=== PATIENT | female | born 1965 | race African-American/Black ===

== ENCOUNTER 2018-08-29 16:23 | Emergency (ER) | payer MEDICAID ==
[2018-08-29 18:22] LABS: APPEARANCE,URINE CLEAR; BILIRUBIN,URINE NEGATIVE (NEGATIVE); COLOR,URINE YELLOW; GLUCOSE, URINE NEGATIVE (NEGATIVE); KETONES,URINE NEGATIVE (NEGATIVE); LEUKOCYTE ESTERASE,URINE NEGATIVE (NEGATIVE); NITRITE,URINE NEGATIVE (NEGATIVE); PROTEIN,URINE 30 mg/dL (NEGATIVE); UROBILINOGEN,URINE NEGATIVE mg/dL (<2.0)
--- NOTE | 2018-08-29 18:46 | ER Document Report ---
ED General - General Chief Complaint: Near Syncope Stated Complaint: SYNCOPE Time Seen by Provider: 08/29/18 18:33 Primary Care Provider: PRADEEP MERRITT MD [Primary Care Provider] - Follow up as needed Mode of Arrival: Ambulatory Information source: Patient Notes: This is a pleasant 52-year-old woman with a history of degenerative joint disease of the knees, vision impairment who lives alone and went outside to take out the garbage. She states she sat down on the ground because her knees hurt. She states when she was on the ground she could not get up because of generalized weakness. She was brought in by her son. She states she was out in the heat for about an hour. She states she did feel weak but was in the house and felt better. Currently, she is without complaints. TRAVEL OUTSIDE OF THE [place] IN LAST 30 DAYS: No - HPI Onset: Just prior to arrival Onset/Duration: Gradual Quality of pain: No pain Severity: None Pain Level: Denies Associated symptoms: denies: Chest pain, Fever Exacerbated by: Denies Relieved by: Denies Similar symptoms previously: Yes Recently seen / treated by doctor: No - Related Data Allergies/Adverse Reactions: Penicillins Allergy (Verified 08/29/18 16:26) Past Medical History - General Information source: Patient - Social History Smoking Status: Never Smoker Cigarette use (# per day): No Chew tobacco use (# tins/day): No Frequency of alcohol use: None Drug Abuse: None Lives with: Family Family History: None Patient has suicidal ideation: No Patient has homicidal ideation: No - Past Medical History Cardiac Medical History: Reports: Hx Hypertension Pulmonary Medical History: Reports: None EENT Medical History: Reports: Eyes - Vision impaired Neurological Medical History: Reports: None Endocrine Medical History: Reports: None Renal/ Medical History: Denies: Hx Peritoneal Dialysis GI Medical History: Reports: None Surgical Hx: Negative Review of Systems - Review of Systems Constitutional: denies: Chills, Fever EENT: No symptoms reported Cardiovascular: See HPI Respiratory: No symptoms reported Gastrointestinal: No symptoms reported Genitourinary: No symptoms reported Female Genitourinary: No symptoms reported Musculoskeletal: See HPI Skin: No symptoms reported Hematologic/Lymphatic: No symptoms reported Neurological/Psychological: See HPI, Weakness - Generalized Physical Exam - Vital signs Vitals: Temp Pulse Resp BP Pulse Ox 98.6 F 113 H 18 140/85 H 94 08/29/18 16:26 08/29/18 16:26 08/29/18 16:26 08/29/18 16:26 08/29/18 16:26 Notes: Physical exam: GENERAL: She is alert and oriented x3, no acute distress HEAD: Atraumatic, normocephalic. EYE: Sclera anicteric, conjunctiva are normal. ENT: TMs normal, nares patent, oropharynx clear without exudates. Moist mucous membranes. NECK: Normal range of motion, supple without obvious mass or JVD. LUNGS: Breath sounds clear to auscultation bilaterally and equal. No wheezes rales or rhonchi. HEART: Regular rate and rhythm without murmurs, rubs or gallops. ABDOMEN: Soft, normoactive bowel sounds. No tenderness to palpation. No guarding, no rebound. No masses appreciated. EXTREMITIES: Normal range of motion, no pitting or edema. No clubbing or cyanosis. NEUROLOGICAL: Cranial nerves II through XII grossly intact. Normal speech, moving all extremities. PSYCH: Normal mood, normal affect. SKIN: Warm, Dry, normal turgor, no rashes or lesions noted. Course - Re-evaluation Re-evalutation: 08/29/18 22:03 Note: Patient states she feels good right now. She is requesting not to have blood work or IV fluids. She is able to tolerate p.o. and she is without complaints at this time. I will let her go home. - Vital Signs Vital signs: Temp Pulse Resp BP Pulse Ox 98.6 F 113 H 28 H 167/101 H 98 08/29/18 16:26 08/29/18 16:26 08/29/18 19:28 08/29/18 19:28 08/29/18 19:28 - Laboratory Laboratory results interpreted by me: 08/29/18 17:57 Urine Protein 30 H Urine Blood SMALL H Discharge - Discharge Clinical Impression: Generalized weakness Condition: Stable Disposition: HOME, SELF-CARE Additional Instructions: As we discussed, your blood pressure was mildly elevated. Want you to continue current medicines and follow-up with Dr. Merritt. Drink plenty of fluids particularly when out in the heat. Return to the emergency room for any chest pain, shortness of breath or any concerns of worsening weakness per Referrals: PRADEEP MERRITT MD [Primary Care Provider] - Follow up as needed
[2018-08-29 19:48] VITALS: BP 167/101
--- NOTE | 2018-08-30 00:02 | EKG REPORT ---
SEVERITY:- ABNORMAL ECG - SINUS RHYTHM PROBABLE INFERIOR INFARCT, AGE INDETERMINATE : Confirmed by: Chelsey Lin 30-Aug-2018 00:01:34
== END 2018-08-29 19:48 | disposition home or self-care (01) ==
LOC: ER 16:23
DX: R53.1 Weakness (principal); R55 Syncope and collapse; I10 Essential (primary) hypertension; Z88.0 Allergy status to penicillin
CPT/HCPCS: 81001; 93005; 93010; 99284

== ENCOUNTER → 2018-10-14 | Outpatient (CLI) | payer MEDICAID ==
--- NOTE | 2018-10-14 14:56 | RADIOLOGY REPORT (SQ) ---
EXAM DESCRIPTION: MRI LT LOWER JOINT WITHOUT COMPLETED DATE/TIME: 10/14/2018 12:28 pm REASON FOR STUDY: M25.562 PAIN IN LEFT KNEE M25.562 PAIN IN LEFT KNEE COMPARISON: None. TECHNIQUE: Leftknee images acquired and stored on PACS. Multiplanar images include fat sensitive se quences as T1, water sensitive sequences as FST2 or STIR, cartilage sensitive sequences as FSPD, and gradient echo sequences. LIMITATIONS: None. FINDINGS: JOINT AND BURSAE: No effusion. BONE CORTEX AND MARROW: No alteration of signal to suggest marrow replacement. No worrisome bone lesi ons. No occult fracture. ACL: Intact. No degeneration or ganglion cyst. PCL: Intact. MCL: Intact. No periligamentous edema or fluid. LCL: Intact. No periligamentous edema or fluid. MEDIAL MENISCUS: Attenuated. Medial extrusion. No acute tear identified. LATERAL MENISCUS: No tears. No abnormal signal. MEDIAL COMPARTMENT: Mild-moderate osteoarthritis. No subchondral edema. LATERAL COMPARTMENT: Mild -moderate osteoarthritis. Subchondral edema posterior tibial plateau. PATELLA: High riding patella. Moderate osteoarthritis. Intact retinaculum. EXTENSOR MECHANISM: Intact. Quadriceps and patella tendons normal. SOFT TISSUES: Adjacent muscles and subcutaneous tissues normal. Normal flow void in popliteal artery and vein. OTHER: No other significant finding. IMPRESSION: 1. Tricompartment osteoarthritis. Subchondral edema posterolateral tibial plateau. 2. Chronic degenerative changes in the medial meniscus. TECHNICAL DOCUMENTATION: JOB ID: [id number] [employer]- All Rights Reserved Reading location - IP/workstation name: [email or web address]
== END ==
LOC: RAD 11:37
PROVIDERS: ATTEND Orthopaedic Surgery
DX: M25.562 Pain in left knee (principal); M17.12 Unilateral primary osteoarthritis, left knee; R60.0 Localized edema